=== PATIENT | male | born 1940 | race Caucasian/White ===

== ENCOUNTER 2025-06-17 12:02 | Inpatient (IN) | payer OTHER ==
[~2025-06-17] VITALS: Ht 175.3 cm; Wt 86.2 kg
[2025-06-17 13:15] LABS: PLATELET COUNT (AUTO) 201 K/uL (150-450); RED BLOOD CELL COUNT(AUTO) 5.56 MIL/uL (4.5-6.0); RED CELL DISTRIBUTION WIDTH 15.0 % (11.5-15.0); WHITE BLOOD COUNT (AUTO) 8.4 K/uL (4.3-11.0)
[2025-06-17 13:16] LABS: CALCIUM, SERUM 9.2 mg/dL (8.5-10.1); CREATININE 1.3 mg/dL (0.6-1.3); SODIUM SERUM 141.0 mmol/L (136-145); UREA NITROGEN, BLOOD 14.0 mg/dL (7-18)
[2025-06-17 13:19] LABS: INR 0.98 (0.91-1.10)
[2025-06-17] MEDS ORDERED: ENOXAPARIN SODIUM 80 MG/0.8 ML DISP.SYRIN SQ ONE (13:41)
[2025-06-17] MEDS: ENOXAPARIN SODIUM 80 MG/0.8 ML DISP.SYRIN SQ ONE (13:47)
[2025-06-17] MEDS ORDERED: ONDANSETRON HCL/PF 4 MG/2 ML VIAL IVP PRN (14:00)
[2025-06-17] MEDS ORDERED: hydrALAZINE HCL IV 20 MG VIAL IV ONE (14:00)
[2025-06-17] MEDS ORDERED: ACETAMINOPHEN 325 MG TABLET PO PRN (14:00)
[2025-06-17] MEDS ORDERED: NS 0.9% IV PRN (14:00)
[2025-06-17] MEDS ORDERED: HYDRALAZINE HCL IV PRN (14:00)
[2025-06-17] MEDS ORDERED: PREG-59 PO (14:13)
[2025-06-17] MEDS ORDERED: BENZ200C53 PO (14:13)
[2025-06-17] MEDS ORDERED: TEST200V3 IM (14:13)
[2025-06-17] MEDS ORDERED: VITA1TAB56 PO (14:13)
[2025-06-17] MEDS ORDERED: CARB1TAB21 PO (14:13)
[2025-06-17] MEDS ORDERED: CITA20TA16 PO (14:13)
[2025-06-17] MEDS ORDERED: PRAM0.129 PO (14:13)
[2025-06-17] MEDS ORDERED: BUPR150T10 PO (14:13)
[2025-06-17] MEDS ORDERED: ZOLP10TA2 PO (14:13)
[2025-06-17] MEDS ORDERED: ESOM20CA37 PO (14:13)
[2025-06-17] MEDS ORDERED: MULT400T5 PO (14:13)
[2025-06-17] MEDS ORDERED: CHOL100062 PO (14:13)
[2025-06-17] MEDS ORDERED: ONDA-97 PO (14:13)
[2025-06-17] MEDS ORDERED: hydrALAZINE HCL IV 20 MG VIAL IV PRN (15:00)
[2025-06-17 15:05] VITALS: O2SAT 98
[2025-06-17 16:00] VITALS: BP 125/83; TEMP 98.1; O2SAT 98
[2025-06-17 20:00] VITALS: BP 115/72; TEMP 98.8; O2SAT 96
[2025-06-17] MEDS ORDERED: Medication Not On Formulary EA (Testosterone Cypionate 200 MG) IM SCH (21:30)
[2025-06-17] MEDS ORDERED: Medication Not On Formulary EA (Ondansetron Hcl 4 MG) PO PRN (21:30)
[2025-06-17] MEDS ORDERED: CARBIDOPA/LEVODOPA 25/100 MG 1 UDTAB PO SCH (22:00)
[2025-06-17] MEDS: CARBIDOPA/LEVODOPA 25/100 MG 1 UDTAB PO SCH (22:25)
[2025-06-17] MEDS: PREGABALIN 100 MG CAPSULE PO SCH (22:26)
[2025-06-17] MEDS: ZOLPIDEM TARTRATE 10 MG TABLET PO SCH (22:27)
[2025-06-17] MEDS ORDERED: BENZONATATE 100 MG CAPSULE PO PRN (22:30)
[2025-06-18] VITALS: BP 107/60; TEMP 98.1; O2SAT 94
[2025-06-18] MEDS: ENOXAPARIN SODIUM 80 MG/0.8 ML DISP.SYRIN SQ SCH (00:06)
[2025-06-18 05:00] VITALS: BP 120/76; TEMP 97.7; O2SAT 97
[2025-06-18 07:13] LABS: PLATELET COUNT (AUTO) 192 K/uL (150-450); RED BLOOD CELL COUNT(AUTO) 4.99 MIL/uL (4.5-6.0); RED CELL DISTRIBUTION WIDTH 15.0 % (11.5-15.0); WHITE BLOOD COUNT (AUTO) 6.0 K/uL (4.3-11.0)
[2025-06-18 07:18] LABS: CALCIUM, SERUM 8.4 mg/dL (8.5-10.1); CREATININE 1.1 mg/dL (0.6-1.3); PHOSPHORUS 3.3 mg/dL (2.5-4.9); SODIUM SERUM 141.0 mmol/L (136-145); UREA NITROGEN, BLOOD 12.0 mg/dL (7-18)
[2025-06-18 07:28] LABS: LDL 116.0 mg/dL (0-99)
[2025-06-18 08:00] VITALS: BP 140/70; TEMP 97.5; O2SAT 94
[2025-06-18] MEDS ORDERED: APIX5TAB PO (09:27)
[2025-06-18] MEDS: MULTIVITAMINS,THERAGRAN 1 UDTAB TABLET PO SCH (10:12)
[2025-06-18] MEDS: buPROPion SR 150 MG TABLET.ER PO SCH (10:12)
[2025-06-18] MEDS: APIXABAN 5 MG TABLET PO SCH (10:14)
[2025-06-18] MEDS: CITALOPRAM HYDROBROMIDE 20 MG TABLET PO SCH (10:16)
[2025-06-18] MEDS: CHOLECALCIFEROL 1,000 UNIT TABLET (VIT D3) PO SCH (10:16)
[2025-06-18] MEDS: CARBIDOPA/LEVODOPA 25/100 MG 1 UDTAB PO SCH (10:21)
[2025-06-18] MEDS: PANTOPRAZOLE 40 MG TABLET.DR PO SCH (10:24)
[2025-06-18] MEDS: VITAMIN B COMP W-C 1 TAB TABLET PO SCH (10:25)
[2025-06-18] MEDS: PREGABALIN 100 MG CAPSULE PO SCH (10:28)
[2025-06-18] MEDS ORDERED: PRAMIPEXOLE DI-HCL 0.25 MG TABLET PO SCH (22:00)
== END 2025-06-18 11:40 | disposition home or self-care (01) | DRG 301 ==
LOC: ER 12:10 → MED 14:34 → TELE 16:15
PROVIDERS: ADMIT Nurse Practitioner Acute Care; ATTEND Nurse Practitioner Acute Care
DX: I82.411 Acute embolism and thrombosis of right femoral vein (principal); E78.5 Hyperlipidemia, unspecified; I10 Essential (primary) hypertension; K21.9 Gastro-esophageal reflux disease without esophagitis; Z79.01 Long term (current) use of anticoagulants; G20.A1 Parkinson's disease without dyskinesia, without mention of fluctuations; F02.80 Dementia in other diseases classified elsewhere, unspecified severity, without behavioral disturbance, psychotic disturbance, mood disturbance, and anxiety; G62.9 Polyneuropathy, unspecified; K44.9 Diaphragmatic hernia without obstruction or gangrene; Z98.890 Other specified postprocedural states; I82.431 Acute embolism and thrombosis of right popliteal vein; K22.70 Barrett's esophagus without dysplasia
CPT/HCPCS: 36415; 71045-TC; 80048-TC; 80061-TC; 83735-TC; 84100-TC; 84484-TC; 85025-TC; 85730-TC; 93307-TC; 93971-TC; G0378; J1650